=== PATIENT | female | born 2000 | race Hispanic/Latino ===

== ENCOUNTER 2021-02-17 12:16 | Emergency (ER) | payer OTHER ==
[2021-02-17 13:23] VITALS: BP 96/75; PULSE 84; O2SAT 99
--- NOTE | 2021-02-17 13:29 | ERPHSYRPT ---
- History of Present Illness Time Seen by Provider: 02/17/21 12:22 Source: patient Exam Limitations: no limitations Patient Subjective Stated Complaint: pt here for abd cramping and spotting, home test postive on thursday, . Triage Nursing Assessment: pt alert, resp easy, skin w.d.p. face mask in place, abd soft Physician History: 20 years old female presented in the ER with a positive test done at h ome. LMP January 14 and since yesterday is having vaginal bleeding dark-colored without clots or passing any tissues. Patient wants to make sure she is not miscarrying. Has mild pelvic cramping. Timing/Duration: day(s) (2), gradual onset, worse Activites at Onset: none Quality: cramping Onset Location: pelvic pain Pain Radiation: none Severity of Pain-Max: mild Severity of Pain-Current: mild Prior abdominal problems: none Sexual intercourse history: single partner Modifying Factors: Improves With: nothing Associated Symptoms: denies symptoms Allergies/Adverse Reactions: No Known Drug Allergies Allergy (Unverified 02/17/21 12:29) Home Medications: No Reportable Medications [No Reported Medications] 02/17/21 [History] Hx Influenza Vaccination/Date Given: No Hx Pneumococcal Vaccination/Date Given: No Travel Risk - International Travel Have you traveled outside of the country in past 3 weeks: No - Coronavirus Screening Are you exhibiting any of the following symptoms?: No Close contact with a COVID-19 positive Pt in past 14-21 Days: No - Vaccine Status Have you recieved a Covid-19 vaccination: No - Review of Systems Constitutional: No Symptoms Eyes: No Symptoms Ears, Nose, & Throat: No Symptoms Respiratory: No Symptoms Cardiac: No Symptoms Abdominal/Gastrointestinal: No Symptoms Genitourinary Symptoms: Vaginal Bleeding Musculoskeletal: No Symptoms Skin: No Symptoms Neurological: No Symptoms Psychological: No Symptoms Endocrine: No Symptoms Hematologic/Lymphatic: No Symptoms Immunological/Allergic: No Symptoms - Past Medical History Pertinent Past Medical History: No - Past Surgical History Past Surgical History: Yes - Social History Smoking Status: Never smoker Exposure to second hand smoke: No Drug Use: none Patient Lives Alone: No - Female History Hx Last Menstrual Period: maech 1 Hx Now: Yes - Nursing Vital Signs Nursing Vital Signs: Initial Vital Signs Temperature 97.0 F 02/17/21 12:24 Pulse Rate 96 H 02/17/21 12:24 Respiratory Rate 16 02/17/21 12:24 Blood Pressure 121/63 02/17/21 12:24 O2 Sat by Pulse Oximetry 98 02/17/21 12:24 Pain Scale Pain Intensity 8 - Physical Exam General Appearance: no apparent distress Neck Exam: normal inspection, non-tender, supple, full range of motion Respiratory Exam: normal breath sounds, lungs clear Cardiovascular Exam: regular rate/rhythm, normal heart sounds Gastrointestinal/Abdomen Exam: soft, normal bowel sounds, No tenderness, No distention Back Exam: normal inspection, normal range of motion Extremity Exam: normal inspection, normal range of motion, pelvis stable Neurologic Exam: alert, oriented x 3, cooperative, medical receptionist biller II-XII nml as tested Skin Exam: normal color SpO2 Interpretation: normal SpO2: 99 O2 Delivery: Room Air Ordered Tests: Active Orders 24 hr Category Date Time Status HCG QUALITATIVE,SERUM Stat Lab 02/17/21 12:40 Completed HCG, Quantitative (Inhouse) Stat Lab 02/17/21 12:40 Completed Lab/Rad Data: Laboratory Results 02/17/21 02/17/21 Range/Units 12:40 12:40 Beta HCG, Quant 2.42 mIU/ml Serum , Qual NEGATIVE (Negative) - Progress Progress: unchanged Air Movement: good Progress Note: 02/17/21 13:26 She was negative serum hCG qualitative and quantitative. I believe she has irregular cycle. Recommended outpatient follow-up. Blood Culture(s) Obtained: No Antibiotics given: No Counseled pt/family regarding: lab results, diagnosis, need for follow-up - Departure Departure Disposition: Home Clinical Impression: Irregular menstrual cycle Condition: Stable Critical Care Time: No Referrals: DOCTOR,NO FAMILY [Primary Care Provider] - LOBITO KISER MD [ACTIVE STAFF] - Follow Up with PCP/3 days Instructions: Absent or Irregular Periods Additional Instructions: Take Tylenol/ibuprofen as needed for cramping. Follow-up with primary care for reevaluation. Return to ER for any worsening bleeding cramping etc.
== END 2021-02-17 13:37 | disposition home or self-care (01) ==
LOC: ED 12:16
DX: N92.6 Irregular menstruation, unspecified (principal)
CPT/HCPCS: 36415; 81025; 84702; 99283